=== PATIENT | female | born 1985 | race African-American/Black ===

== ENCOUNTER 2022-09-10 16:30 | Emergency (ER) | payer OTHER ==
[~2022-09-10] VITALS: Ht 165.1 cm; Wt 122.5 kg
--- NOTE | 2022-09-10 16:42 | NUR ---
Pt was seen and medically cleared by and d/c in [facility].
== END 2022-09-10 16:43 ==
LOC: ER 16:30
DX: Z88.1 Allergy status to other antibiotic agents
CPT/HCPCS: A4663